=== PATIENT | female | born 1985 ===

== ENCOUNTER 2018-04-02 20:54 | Emergency (ER) | payer MEDICAID ==
[2018-04-02 20:54] VITALS: BMI 37.0
[2018-04-02 21:06] VITALS: RESP 20; TEMP 98.2; O2SAT 100
[2018-04-02 21:26] LABS: SQUAMOUS EPITHIAL 8 /hpf (0-5); URINE BILIRUBIN NEGATIVE (NEGATIVE); URINE BLOOD NEGATIVE (NEGATIVE); URINE CALCIUM OXALATE CRYSTALS OCC /hpf (<OCC); URINE CLARITY Hazy (Clear); URINE COLOR Yellow (YELLOW); URINE GLUCOSE (UA) NORMAL (Normal); URINE LEUKOCYTE ESTERASE 2+ Leu/uL (Negative); URINE PROTEIN NEGATIVE (NEGATIVE)
[2018-04-02] MEDS ORDERED: Sodium Chloride 0.9% 500 ML IV ONE (21:36)
[2018-04-02 22:07] LABS: BASO % 0.6 % (0.0-2.0); EOS # 0.1 K/uL (0.0-0.7); EOS % 2.1 % (0.0-4.0); HEMOGLOBIN 7.5 g/dL (11.0-16.0); LYMPH # 2.2 K/uL (1.0-4.3); LYMPH % 35.2 % (20.0-40.0); MEAN CELL VOLUME 69.8 fL (81.0-99.0); MEAN CORPUSCULAR HEMOGLOBIN 22.5 pg (27.0-31.0); MEAN CORPUSCULAR HGB CONC 32.2 g/dL (33.0-37.0); MEAN PLATELET VOLUME 8.2 fL (7.2-11.7); MONO # 0.3 K/uL (0.0-0.8); MONO % 5.2 % (0.0-10.0); NEUT # 3.6 K/uL (1.8-7.0); NEUT % 56.9 % (50.0-75.0); RBC 3.34 Mil/uL (3.80-5.20); RED CELL DISTRIBUTION WIDTH 16.5 % (11.5-14.5); WHITE BLOOD COUNT 6.4 K/uL (4.8-10.8)
[2018-04-02 22:20] LABS: ALBUMIN 3.6 g/dL (3.5-5.0); ALT/SGPT 19 U/L (9-52); AST/SGOT 16 U/L (14-36); BLOOD UREA NITROGEN 9 mg/dL (7-17); CALCIUM 8.9 mg/dl (8.6-10.4); GFR AFRICAN-AMERICAN > 60; GFR NON-AFRICAN AMERICAN > 60
--- NOTE | 2018-04-02 22:28 | C.PDOC ---
History Of Present Illness 32 year old female presents to the ED c/o abdominal pain mostly located in the left flank and LLQ associated with vaginal discharge. Patient rpeorts her LMP was on 03/16. Patient denies fever, chills, nausea, vomit, diarrhea, dysuria, hematuria. Time Seen by Provider: 04/02/18 21:14 Chief Complaint (Nursing): Abdominal Pain History Per: Patient History/Exam Limitations: no limitations Onset/Duration Of Symptoms: Days Current Symptoms Are (Timing): Still Present Location Of Pain/Discomfort: LLQ Radiation Of Pain To:: Back Quality Of Discomfort: "Pain" Associated Symptoms: Urinary Symptoms Recent travel outside of the [place]: No Abnormal Vaginal Bleeding: No Last Menstral Period: 03/16/18 Past Medical History Reviewed: Historical Data, Nursing Documentation, Vital Signs Vital Signs: Last Vital Signs Temp 98.2 F 04/02/18 21:02 Pulse 72 04/02/18 23:58 Resp 20 04/02/18 23:58 BP 114/78 04/02/18 23:58 Pulse Ox 100 04/02/18 23:44 - Medical History PMH: Anemia, Depression Surgical History: No Surg Hx Family History: States: Unknown Family Hx - Social History Hx Alcohol Use: No Hx Substance Use: No - Immunization History Hx Tetanus Toxoid Vaccination: No Hx Influenza Vaccination: Yes Hx Pneumococcal Vaccination: Yes Review Of Systems Constitutional: Negative for: Fever, Chills Respiratory: Negative for: Shortness of Breath Gastrointestinal: Positive for: Abdominal Pain Genitourinary: Positive for: Vaginal Discharge Musculoskeletal: Positive for: Back Pain Skin: Negative for: Rash Neurological: Negative for: Weakness, Numbness Physical Exam - Physical Exam Appears: Non-toxic, No Acute Distress Skin: Normal Color, Warm, Dry Head: Atraumatic, Normacephalic Eye(s): bilateral: Normal Inspection Nose: No Discharge Oral Mucosa: No Moist Neck: Normal ROM, Supple Chest: Symmetrical Cardiovascular: Rhythm Regular, No Murmur Respiratory: Normal Breath Sounds, No Rales, No Rhonchi, No Wheezing Gastrointestinal/Abdominal: Soft, Tenderness (left flank, left suprapubic area) , No Guarding, No Rebound, Other (Suprapubic surgical scar noted) Back: Other (left flank tenderness) Pelvic: Normal External Exam, Normal Speculum Exam, No Vaginal Bleeding, Vaginal Discharge (minimal - normal appearing, clear), No Cervical Motion Tenderness, No Adnexal Tenderness Extremity: Normal ROM, No Tenderness, No Swelling Neurological/Psych: Oriented x3, Normal Speech Gait: Steady ED Course And Treatment - Laboratory Results Result Diagrams: 04/02/18 22:00 04/02/18 22:00 O2 Sat by Pulse Oximetry: 100 (ON RA) Pulse Ox Interpretation: Normal - CT Scan/US CT abd/pelvis Other Rad Studies (CT/US): Read By Radiologist, Radiology Report Reviewed CT/US Interpretation: FINDINGS: Lower thorax: Heart size is normal. Lung bases are clear. ABDOMEN: Liver: unremarkable. Gallbladder and bile ducts: unremarkable. Pancreas: unremarkable. Spleen: unremarkable. Adrenals: unremarkable. Kidneys and ureters: There is a tiny nonobstructing right renal stone.Kidneys and ureters are. otherwise unremarkable. Stomach and bowel: There postsurgical changes of gastric bypass. There is mild distention at the. enterostomy site. There is no obstruction. There is fluid and air throughout the small bowel. Ileocecal. region is unremarkable. Appendix and terminal ileum are unremarkable. There is scattered. diverticulosis. PELVIS: Appendix : See stomach and bowel. Bladder: unremarkable. Reproductive: Uterus and right adnexa are unremarkable. There is mild prominence of left adnexa. ABDOMEN and PELVIS: Intraperitoneal space: There is no free air. There is no significant fluid. Bones/joints: There are no acute osseous abnormalities. There is minimal spondylosis. Soft tissues: There are multiple small subcutaneous nodules in the buttocks. Vasculature: There are multiple phleboliths. Vascular structures are unremarkable. Lymph nodes: There is no pathologic adenopathy. IMPRESSION: No obstructing renal or ureteral stones or hydronephrosis; diverticulosis without CT. findings of diverticulitis; prior gastric bypass. Additional nonemergent findings as described above. Thank you for allowing us to participate in the care of your patient. Progress Note: Plan: - CT abd/pelvis. - Labs. - IV fluids. - Toradol 30 mg IVP. - UA. Labs and results of the ABD/PELV CT d/w pt. On reassessment, patient is resting comfortably, and is in no acute distress, pain improved. Patient was instructed to follow up with physician/clinic or [facility] for further evaluation in 1-2 days for further evaluation. Disposition Counseled Patient/Family Regarding: Diagnosis, Need For Followup, Rx Given - Disposition Referrals: [facility] [Outside] Disposition: HOME/ ROUTINE Disposition Time: 23:39 Condition: STABLE Additional Instructions: Take medications as directed Follow up with PMD Return to ER if worse Prescriptions: Naproxen [Naprosyn] 1 tab PO BID PRN #20 tab PRN Reason: Pain Instructions: Acute Pelvic Pain (DC) Forms: [employer] (Lao) - Clinical Impression Clinical Impression: Pelvic pain - PA / [employer] / Resident Statement MD/DO has reviewed & agrees with the documentation as recorded. - Scribe Statement The provider has reviewed the documentation as recorded by the Scribe Darin Whiting All medical record entries made by the Scribe were at my direction and personally dictated by me. I have reviewed the chart and agree that the record accurately reflects my personal performance of the history, physical exam, medical decision making, and the department course for this patient. I have also personally directed, reviewed, and agree with the discharge instructions and disposition.
--- NOTE | 2018-04-02 23:14 | CT ---
EXAM: CT Abdomen and Pelvis Without Intravenous Contrast EXAM DATE/TIME: 04/02/2018 9:36 PM CLINICAL HISTORY: 32 years old, female; Pain; Abdominal pain; Flank; Left lower quadrant (llq); Additional info: Lt flank pain, lt groin pain TECHNIQUE: Axial computed tomography images of the abdomen and pelvis without intravenous contrast. All CT scans at this facility use one or more dose reduction techniques, viz.: automated exposure control; ma/kV adjustment per patient size (including targeted exams where dose is matched to indication; i.e. head); or iterative reconstruction technique. Coronal and sagittal reformatted images were created and reviewed. COMPARISON: There are no prior studies for comparison. FINDINGS: Lower thorax: Heart size is normal. Lung bases are clear. ABDOMEN: Liver: unremarkable Gallbladder and bile ducts: unremarkable Pancreas: unremarkable Spleen: unremarkable Adrenals: unremarkable Kidneys and ureters: There is a tiny nonobstructing right renal stone.Kidneys and ureters are otherwise unremarkable. Stomach and bowel: There postsurgical changes of gastric bypass. There is mild distention at the enterostomy site. There is no obstruction. There is fluid and air throughout the small bowel. Ileocecal region is unremarkable. Appendix and terminal ileum are unremarkable. There is scattered diverticulosis PELVIS: Appendix: See stomach and bowel Bladder: unremarkable Reproductive: Uterus and right adnexa are unremarkable. There is mild prominence of left adnexa. ABDOMEN and PELVIS: Intraperitoneal space: There is no free air. There is no significant fluid. Bones/joints: There are no acute osseous abnormalities. There is minimal spondylosis. Soft tissues: There are multiple small subcutaneous nodules in the buttocks. Vasculature: There are multiple phleboliths. Vascular structures are unremarkable. Lymph nodes: There is no pathologic adenopathy. IMPRESSION: No obstructing renal or ureteral stones or hydronephrosis; diverticulosis without CT findings of diverticulitis; prior gastric bypass Additional nonemergent findings as described above.
[2018-04-02 23:59] VITALS: BP 114/78; PULSE 72
== END 2018-04-02 23:57 | disposition home or self-care (01) ==
LOC: C.ER 20:54
DX: R10.2 Pelvic and perineal pain (principal)
CPT/HCPCS: 74176; 80053; 81001; 85025; 87086; 96361; 96374; 99285; J1885; J7040